=== PATIENT | male | born 1960 | race Caucasian/White ===

== ENCOUNTER 2021-10-28 10:55 | Day surgery (SDC) | payer BC ==
[~2021-10-28] VITALS: Ht 180.3 cm; Wt 81.8 kg
[~2021-10-28 10:55] MED LIST: CLINDAMYCIN 900MG PREMIX 50 ML IV PRN; CLINDAMYCIN PREMIX 900 MG/50 ML BAG IV ONE; HYDROmorphone 2 MG/ML INJ. IVP PRN; IV RINGERS,LACTATED 1000ML 1,000 ML IV SCH; MORPHINE SULFATE 2 MG/ML INJ. IVP PRN; PROCHLORPERAZINE 10 MG/2 ML VIAL. IVP PRN; fentaNYL PF VIAL 100 MCG/2 ML VIAL IVP PRN
[2021-10-28] MEDS ORDERED: ATOR20TA58 PO (11:22)
[2021-10-28] MEDS ORDERED: LISI-130 PO (11:22)
[2021-10-28] MEDS ORDERED: TADA5TAB PO (11:22)
[2021-10-28] MEDS ORDERED: SITA100T PO (11:22)
[2021-10-28] MEDS ORDERED: GABA-689 PO (11:22)
[2021-10-28] MEDS ORDERED: HYDR-2145 PO (11:22)
[2021-10-28] MEDS ORDERED: MULT-690 PO (11:22)
[2021-10-28 11:23] VITALS: BP 148/79
[2021-10-28] MEDS ORDERED: INSULIN LISPRO 100 UNIT/ML 3ML VIAL for OP,RR ONLY. SQ PRN (11:30)
[2021-10-28] MEDS ORDERED: INSULIN LISPRO 100 UNIT/ML 3ML VIAL for OP,RR ONLY. SQ ONE (11:45)
[2021-10-28] MEDS ORDERED: BUPIVACAINE-EPI 0.25%-1:200000 MPF 30 ML VIAL. ONE (12:00)
[2021-10-28] MEDS ORDERED: DEXAMETHASONE SOD PHOS 4 MG/ML VIAL ONE (12:37)
[2021-10-28] MEDS ORDERED: PROPOFOL 10 MG/ML (20ML) VIAL. IV ONE (12:37)
[2021-10-28] MEDS ORDERED: SEVOFLURANE 31 TO 60 MINUTES. IH ONE (12:37)
[2021-10-28] MEDS ORDERED: fentaNYL PF VIAL 100 MCG/2 ML VIAL ONE (12:37)
[2021-10-28] MEDS ORDERED: ONDANSETRON PF 4 MG/2 ML VIAL. ONE (12:37)
[2021-10-28] MEDS ORDERED: LIDOCAINE 2% PF 5 ML VIAL. ONE (12:37)
[2021-10-28] MEDS ORDERED: BUPIVACAINE-EPI 0.25%-1:200000 MPF 30 ML VIAL. INJ ONE (13:11)
--- NOTE | 2021-10-28 13:37 | PDOC4 ---
OPERATIVE NOTE Date: Date: Oct 28, 2021 Pre-Op Diagnosis: Medial meniscal tear with degenerative joint disease right knee Post-Op Diagnosis: Same Procedure Performed: Right knee arthroscopy with debridement medial meniscus chondroplasty medial femoral condyle patellofemoral sulcus and lateral femoral condyle resection of plica Surgeon: Jordy Anesthesia Type: General Blood Loss: 20 cc Specimans Obtained: None Findings: See dictation Complications: None KRYSTINA WATKINS Jr. DO Oct 28, 2021 13:37
--- NOTE | 2021-10-28 13:41 | DISCH ---
DISCHARGE INSTRUCTIONS Condition on Discharge Condition on Discharge: Stable Activity After Discharge Activity Instructions for Disc: Activity as tolerated Driving Instructions after Dis: Do not drive today Weight Bearing Status after Di: Full weight bearing Wound Incision Care Wound/Incision Care: Ice to area for comfort, Keep wound elevated Other wound/incision instructi: May change dressings postoperative day #2 Follow-Up Follow up with: 10 to 14 days KRYSTINA WATKINS Jr. DO Oct 28, 2021 13:41
[2021-10-28] MEDS ORDERED: ACET1TAB33 PO (13:43)
[2021-10-28] MEDS ORDERED: ACETAMINOPHEN/CODEINE 300/30MG TABLET. PO ONE (14:00)
--- NOTE | 2021-10-28 14:01 | OP ---
DATE OF SURGERY: 10/28/2021 PREOPERATIVE DIAGNOSIS: Medial meniscal tear, right knee. POSTOPERATIVE DIAGNOSES: Medial meniscal tear with degenerative joint disease, right knee. PROCEDURE: Right knee arthroscopy with debridement, meniscus and chondroplasty of medial femoral condyle. SURGEON: Hamilton Spence Jr, DO [employer] SUPERVISOR: Good Faustin. ANESTHESIA: General. COMPLICATIONS: None. ESTIMATED BLOOD LOSS: 20 mL DESCRIPTION OF PROCEDURE: The patient was taken to the operative suite, given a general anesthetic. Right lower extremity was placed in a knee figueredo, prepped and draped in a sterile fashion. Knee was insufflated with saline. Visualization of the patellofemoral joint noted there to be some changes on the patella as well as the femoral side. This was a grade 2 and grade 3 changes, which were unstable. Therefore, chondral debridement was undertaken of the patella as well as the femoral sulcus. Following this, there was a large medial plica, which was causing issues with the medial femoral condyle. This was resected in its entirety as well. There were no loose bodies within this area of the medial compartment or the gutter; however, upon entering the compartment it looked very good. The chondral surfaces; however, on the femoral side were deep grade 3 changes, which were unstable. This was debrided back to stable tissue. There was a tear of approximately the anterior one-third of the root; however, the posterior two-thirds were completely intact and with continued probing on that area to try to displace this there was no displacement whatsoever of the meniscus. The tibial side had some fraying, but no significant damage noted at this point. No other lesions were noted. Therefore, the scope was then taken into the intercondylar region. ACL and the PCL were probed and noted to be stable. Scope was then taken to the lateral compartment, again there was some fracturing of the lateral tibial plateau, but no marcy chondral lesions of significance. The meniscus was intact and stable with probing and the chondral surface was grade 2 and 3 changes, but there were stable to the lateral compartment for the most part other than the most lateral aspect, which was debrided minimally at this point. No loose bodies were noted in the lateral gutter. This was then copiously irrigated and suctioned dry. All instruments were removed. Sterile dressing was applied after wounds were reapproximated with nylon in an interrupted fashion and local was placed with 0.25% Marcaine. The patient was then taken from the operative bed to the postoperative bed, taken to the PACU in stable condition. WILLIAM/CUCO DR: Erinn TID: [id number]
[2021-10-28 14:15] VITALS: BP 120/79
== END 2021-10-28 14:50 | disposition home or self-care (01) ==
LOC: SURG 10:55
PROVIDERS: ATTEND Orthopaedic Surgery
DX: S83.241A Other tear of medial meniscus, current injury, right knee, initial encounter (principal); I10 Essential (primary) hypertension; E78.00 Pure hypercholesterolemia, unspecified; G47.30 Sleep apnea, unspecified; E11.9 Type 2 diabetes mellitus without complications; Z79.899 Other long term (current) drug therapy; Z79.84 Long term (current) use of oral hypoglycemic drugs; Z98.890 Other specified postprocedural states; Z88.0 Allergy status to penicillin; X58.XXXA Exposure to other specified factors, initial encounter; Y93.89 Activity, other specified; Y92.89 Other specified places as the place of occurrence of the external cause; Y99.8 Other external cause status
CPT/HCPCS: 29881; 82962; A4930; A6223; A6253; A6402; A6450; J1100; J1815; J2405; J2704; J3010; J3490